=== PATIENT | male | born 1995 | race Hispanic/Latino ===

== ENCOUNTER 2022-03-31 23:17 | Emergency (ER) | payer OTHER ==
[~2022-03-31] VITALS: Ht 172.7 cm; Wt 74.8 kg
[2022-04-01] MEDS ORDERED: LISINOPRIL20 MG PO (00:58)
== END 2022-04-01 02:42 | disposition home or self-care (01) ==
LOC: ED 23:17
DX: R20.2 Paresthesia of skin (principal); I10 Essential (primary) hypertension; Z88.8 Allergy status to other drugs, medicaments and biological substances; Z79.899 Other long term (current) drug therapy
CPT/HCPCS: 36415; 70450; 80048; 85025; 86140; 99284-25